=== PATIENT | male | born 1950 | race Two or more races ===

== ENCOUNTER 2019-04-10 14:25 | Outpatient (CLI) | payer OTHER ==
[~2019-04-10 14:25] MED LIST: DIOVAN160 M1 PO; HYDROCHLOROTHIA25 MG PO
== END 2019-04-10 14:28 | disposition home or self-care (01) ==
LOC: RAD 14:25
DX: M25.561 Pain in right knee (principal)

== ENCOUNTER → 2019-08-23 | Outpatient (CLI) | payer OTHER | END | disposition home or self-care (01) | LOC: MRI 14:04 | DX: M25.462 Effusion, left knee (principal); M67.462 Ganglion, left knee; M25.562 Pain in left knee | CPT/HCPCS: 73721 ==

== ENCOUNTER 2020-03-05 14:15 | Emergency (ER) | payer OTHER ==
[~2020-03-05] VITALS: Ht 172.7 cm; Wt 129.3 kg
[2020-03-05] MEDS ORDERED: IBERSALTAN (14:37)
[2020-03-05] MEDS ORDERED: CELEBREX200MG PO (18:17)
== END 2020-03-05 18:25 | disposition home or self-care (01) ==
LOC: ER 14:15
DX: M75.82 Other shoulder lesions, left shoulder (principal)

== ENCOUNTER → 2021-06-23 | Outpatient (CLI) | payer OTHER ==
[~2021-06-23] MED LIST changes: +CELEBREX200MG PO; +IBERSALTAN
== END | disposition home or self-care (01) ==
LOC: RAD 15:41
DX: M12.551 Traumatic arthropathy, right hip (principal)

== ENCOUNTER → 2022-10-19 14:54 | Outpatient (CLI) | payer OTHER | END | disposition home or self-care (01) | LOC: LAB 14:54 | PROVIDERS: ATTEND Internal Medicine | DX: R70.0 Elevated erythrocyte sedimentation rate (principal); I10 Essential (primary) hypertension ==

== ENCOUNTER 2022-10-19 15:35 | Outpatient (CLI) | payer OTHER | END 2022-10-19 15:41 | disposition home or self-care (01) | LOC: RAD 15:35 | PROVIDERS: ATTEND Internal Medicine | DX: S89.91XA Unspecified injury of right lower leg, initial encounter (principal) ==

== ENCOUNTER 2022-10-21 09:37 | Inpatient (IN) | payer OTHER ==
[~2022-10-21] VITALS: Ht 175.3 cm; Wt 134.3 kg
[2022-10-21] MEDS ORDERED: IRBESARTAN150 MG PO (10:04)
[2022-10-21] MEDS ORDERED: ADULT LOW DOSE81 M1 PO (10:04)
[2022-10-29] MEDS ORDERED: ADULT LOW DOSE81 M1 PO (16:38)
[2022-10-29] MEDS ORDERED: AVAPRO150 MG PO (16:38)
== END 2022-10-29 19:53 | disposition home or self-care (01) | DRG 571 ==
LOC: ER 09:37 → MEDI 17:21
PROVIDERS: Emergency Medicine; ADMIT Internal Medicine; ATTEND Internal Medicine
PROC: B54DZZZ Ultrasonography of Bilateral Lower Extremity Veins (ICD-10-PCS; 2022-10-21)
PROC: B44HZZZ Ultrasonography of Bilateral Lower Extremity Arteries (ICD-10-PCS; 2022-10-21)
PROC: BH3 Imaging, Skin, Subcutaneous Tissue and Breast, Magnetic Resonance Imaging (MRI) (ICD-10-PCS; 2022-10-22)
PROC: 0JBN0ZZ Excision of Right Lower Leg Subcutaneous Tissue and Fascia, Open Approach (ICD-10-PCS; principal; 2022-10-23)
PROC: 2W1LX6Z Compression of Right Lower Extremity using Pressure Dressing (ICD-10-PCS; 2022-10-23)
PROC: 0JCN0ZZ Extirpation of Matter from Right Lower Leg Subcutaneous Tissue and Fascia, Open Approach (ICD-10-PCS; 2022-10-27)
DX: L03.115 Cellulitis of right lower limb (principal); L97.518 Non-pressure chronic ulcer of other part of right foot with other specified severity; Z68.41 Body mass index [BMI] 40.0-44.9, adult; S81.801A Unspecified open wound, right lower leg, initial encounter; L02.415 Cutaneous abscess of right lower limb; W55.19XA Other contact with horse, initial encounter; E66.09 Other obesity due to excess calories; I10 Essential (primary) hypertension; M15.9 Polyosteoarthritis, unspecified; Z96.641 Presence of right artificial hip joint; Z79.82 Long term (current) use of aspirin
CPT/HCPCS: 73725

== ENCOUNTER 2022-11-18 12:36 | Inpatient (IN) | payer OTHER ==
[~2022-11-18] VITALS: Ht 172.7 cm; Wt 136.1 kg
[~2022-11-18 12:36] MED LIST changes: +ADULT LOW DOSE81 M1 PO; +AVAPRO150 MG PO; +IRBESARTAN150 MG PO
[2022-11-18 14:33] LABS: HEMATOCRIT 39.3 % (39.0-48.0); HEMOGLOBIN 12.4 g/dL (13-16.00); MEAN CELL VOLUME 80.8 fL (80.0-100.00); MEAN CORPUSCULAR HEMOGLOBIN 25.6 pg (27.00-32.0); MEAN CORPUSCULAR HGB CONC 31.6 g/dl (32.0-36.0); PLATELET COUNT 260 K/uL (150-450); RED BLOOD COUNT 4.86 M/uL (4.00-6.00); RED CELL DISTRIBUTION WIDTH 15.9 % (11.5-14.5)
[2022-11-18 14:40] LABS: ERYTHROCYTE SEDIMENTATION RATE 87 mm/hr
[2022-11-18 14:42] LABS: INR 1.06; PARTIAL THROMBOPLASTIN TIME 30.2 SECONDS (22.0-34.0); PROTHROMBIN TIME 11.1 SECONDS (9.0-11.5)
[2022-11-18 14:48] LABS: ALBUMIN 3.1 gm/dL (3.4-5.0); BILIRUBIN TOTAL 0.74 mg/dL (0.3-1.2); CALCIUM 8.8 mg/dL (8.5-10.1); CREATININE SERUM 1.18 mg/dL (0.70-1.30); GFR 61.03; GLOBULINA 4.3 G/DL (2.4-3.5); POTASSIUM 3.91 mEq/L (3.5-5.1); TOTAL PROTEIN 7.4 gm/dL (6.4-8.2)
[2022-11-19 00:07] LABS: URINE APPEARANCE Clear; URINE BILIRRUBIN Negative (NEGATIVE); URINE BLOOD Negative; URINE COLOR Dark Yellow; URINE GLUCOSE Negative (NEGATIVE); URINE LEUKOCYTE Negative; URINE NITRATE Negative; URINE PROTEIN 30 (NEGATIVE)
[2022-11-19 00:10] LABS: URINE BACTERIA 8.4 uL (0.0-1933); URINE EPITHELIAL CELLS 6.7 uL (0.0-38.8); URINE RBC 7.9 uL (0.0-20.8); URINE WBC 5.7 uL (0.0-23.2)
[2022-11-19] MEDS ORDERED: METRONIDAZOLE45 G1 (08:10)
[2022-11-22 07:26] LABS: HEMATOCRIT 33.7 % (39.0-48.0); HEMOGLOBIN 11.3 g/dL (13-16.00); MEAN CELL VOLUME 79.1 fL (80.0-100.00); MEAN CORPUSCULAR HEMOGLOBIN 26.4 pg (27.00-32.0); MEAN CORPUSCULAR HGB CONC 33.5 g/dl (32.0-36.0); PLATELET COUNT 244 K/uL (150-450); RED BLOOD COUNT 4.26 M/uL (4.00-6.00); RED CELL DISTRIBUTION WIDTH 15.6 % (11.5-14.5)
[2022-11-22 07:38] LABS: ERYTHROCYTE SEDIMENTATION RATE 82 mm/hr
[2022-11-22 08:41] LABS: CALCIUM 8.6 mg/dL (8.5-10.1); CREATININE SERUM 1.01 mg/dL (0.70-1.30); GFR 73.03; MAGNESIUM 2.1 mg/dL (1.8-2.4); PHOSPHOROUS 3.4 mg/dL (2.5-4.9); POTASSIUM 4.2 mEq/L (3.5-5.1)
[2022-11-22 09:06] LABS: C-REACTIVE PROTEIN 6.42 MG/DL (0.00-0.29)
[2022-11-26 08:21] LABS: HEMATOCRIT 36.8 % (39.0-48.0); HEMOGLOBIN 11.9 g/dL (13-16.00); MEAN CELL VOLUME 80.2 fL (80.0-100.00); MEAN CORPUSCULAR HGB CONC 32.4 g/dl (32.0-36.0); PLATELET COUNT 277 K/uL (150-450); RED BLOOD COUNT 4.59 M/uL (4.00-6.00); RED CELL DISTRIBUTION WIDTH 15.1 % (11.5-14.5)
[2022-11-26 08:56] LABS: ALBUMIN 2.9 gm/dL (3.4-5.0); BILIRUBIN TOTAL 0.72 mg/dL (0.3-1.2); CALCIUM 8.8 mg/dL (8.5-10.1); CREATININE SERUM 0.89 mg/dL (0.70-1.30); GFR 84.5; GLOBULINA 3.5 G/DL (2.4-3.5); POTASSIUM 4.07 mEq/L (3.5-5.1); TOTAL PROTEIN 6.4 gm/dL (6.4-8.2)
[2022-11-26 09:15] LABS: C-REACTIVE PROTEIN 3.64 MG/DL (0.00-0.29)
[2022-11-29 07:10] LABS: HEMATOCRIT 35.4 % (39.0-48.0); MEAN CELL VOLUME 78.1 fL (80.0-100.00); MEAN CORPUSCULAR HEMOGLOBIN 26.5 pg (27.00-32.0); PLATELET COUNT 271 K/uL (150-450); RED BLOOD COUNT 4.54 M/uL (4.00-6.00); RED CELL DISTRIBUTION WIDTH 15.1 % (11.5-14.5)
[2022-11-29 07:59] LABS: ALBUMIN 2.9 gm/dL (3.4-5.0); BILIRUBIN TOTAL 0.58 mg/dL (0.3-1.2); CALCIUM 8.7 mg/dL (8.5-10.1); CREATININE SERUM 0.87 mg/dL (0.70-1.30); GFR 86.75; GLOBULINA 3.5 G/DL (2.4-3.5); POTASSIUM 4.07 mEq/L (3.5-5.1); TOTAL PROTEIN 6.4 gm/dL (6.4-8.2)
[2022-12-04 09:12] LABS: HEMOGLOBIN 12.2 g/dL (13-16.00); MEAN CELL VOLUME 79.4 fL (80.0-100.00); MEAN CORPUSCULAR HEMOGLOBIN 25.5 pg (27.00-32.0); PLATELET COUNT 326 K/uL (150-450); RED BLOOD COUNT 4.78 M/uL (4.00-6.00); RED CELL DISTRIBUTION WIDTH 15.5 % (11.5-14.5)
[2022-12-04 09:13] LABS: ALBUMIN 3.2 gm/dL (3.4-5.0); BILIRUBIN TOTAL 0.72 mg/dL (0.3-1.2); CALCIUM 9.1 mg/dL (8.5-10.1); CREATININE SERUM 1.01 mg/dL (0.70-1.30); GFR 73.03; GLOBULINA 3.6 G/DL (2.4-3.5); POTASSIUM 4.35 mEq/L (3.5-5.1); TOTAL PROTEIN 6.8 gm/dL (6.4-8.2)
[2022-12-04 09:22] LABS: C-REACTIVE PROTEIN 1.87 MG/DL (0.00-0.29)
[2022-12-04 10:26] LABS: ERYTHROCYTE SEDIMENTATION RATE 90 mm/hr
[2022-12-09] MEDS ORDERED: PEPCID AC20 MG PO (17:06)
[2022-12-09] MEDS ORDERED: INTESTINEX680 M1 PO (17:06)
[2022-12-09] MEDS ORDERED: METRONIDAZOLE500 MG PO (17:06)
== END 2022-12-09 18:21 | disposition home or self-care (01) | DRG 580 ==
LOC: ER → MEDI 20:47 → MEDJ 11-20 12:33
PROVIDERS: General Practice; Internal Medicine; Internal Medicine Geriatric Medicine; ADMIT Internal Medicine; ATTEND Internal Medicine
PROC: B54DZZZ Ultrasonography of Bilateral Lower Extremity Veins (ICD-10-PCS; 2022-11-19)
PROC: 0JBN3ZZ Excision of Right Lower Leg Subcutaneous Tissue and Fascia, Percutaneous Approach (ICD-10-PCS; 2022-11-20)
PROC: 0JBN3ZZ Excision of Right Lower Leg Subcutaneous Tissue and Fascia, Percutaneous Approach (ICD-10-PCS; 2022-11-24)
PROC: B42FZZZ Computerized Tomography (CT Scan) of Right Lower Extremity Arteries (ICD-10-PCS; 2022-11-26)
PROC: 0JBN3ZZ Excision of Right Lower Leg Subcutaneous Tissue and Fascia, Percutaneous Approach (ICD-10-PCS; principal; 2022-11-29)
PROC: CP1C1ZZ Planar Nuclear Medicine Imaging of Right Lower Extremity using Technetium 99m (Tc-99m) (ICD-10-PCS; 2022-11-29)
PROC: B43FZZZ Magnetic Resonance Imaging (MRI) of Right Lower Extremity Arteries (ICD-10-PCS; 2022-12-02)
PROC: 0JBN3ZZ Excision of Right Lower Leg Subcutaneous Tissue and Fascia, Percutaneous Approach (ICD-10-PCS; 2022-12-07)
PROC: 02HV33Z Insertion of Infusion Device into Superior Vena Cava, Percutaneous Approach (ICD-10-PCS; 2022-12-08)
DX: L03.115 Cellulitis of right lower limb (principal); L97.818 Non-pressure chronic ulcer of other part of right lower leg with other specified severity; B95.61 Methicillin susceptible Staphylococcus aureus infection as the cause of diseases classified elsewhere; L08.89 Other specified local infections of the skin and subcutaneous tissue; I10 Essential (primary) hypertension; K21.9 Gastro-esophageal reflux disease without esophagitis
CPT/HCPCS: 73725

== ENCOUNTER 2024-01-19 15:05 | Outpatient (CLI) | payer OTHER ==
[~2024-01-19 15:05] MED LIST changes: +INTESTINEX680 M1 PO; +METRONIDAZOLE45 G1; +METRONIDAZOLE500 MG PO; +PEPCID AC20 MG PO
== END 2024-01-19 15:07 | disposition home or self-care (01) ==
LOC: RAD 15:05
PROVIDERS: ATTEND Internal Medicine
DX: R10.9 Unspecified abdominal pain (principal)

== ENCOUNTER 2024-01-20 07:18 | Outpatient (CLI) | payer OTHER | END 2024-01-20 07:21 | disposition home or self-care (01) | LOC: SONOGRAMA 07:18 | PROVIDERS: ATTEND Internal Medicine | DX: R10.9 Unspecified abdominal pain (principal) ==

== ENCOUNTER 2024-03-29 12:48 | Outpatient (CLI) | payer OTHER | END 2024-03-29 12:51 | disposition home or self-care (01) | LOC: RAD 12:48 | PROVIDERS: ATTEND Internal Medicine | DX: M25.552 Pain in left hip (principal) ==

== ENCOUNTER 2024-12-10 15:15 | Outpatient (CLI) | payer OTHER | END 2024-12-10 15:22 | disposition home or self-care (01) | LOC: RAD 15:15 | PROVIDERS: ATTEND Orthopaedic Surgery Adult Reconstructive Orthopaedic Surgery | DX: Z96.643 Presence of artificial hip joint, bilateral (principal) ==